=== PATIENT | female | born 1945 | race African-American/Black ===

== ENCOUNTER 2016-08-17 20:42 | Emergency (ER) | payer MEDICARE, MEDICAID ==
[~2016-08-17] VITALS: Ht 165.1 cm; Wt 109.8 kg
[2016-08-17] MEDS ORDERED: Tylenol #3 tab (300mg/30mg) ORAL ONE (21:00)
[2016-08-17] MEDS ORDERED: NORCO 5-325 TA1 EACH ORAL (21:02)
[2016-08-17] MEDS ORDERED: VALACYCLOVIR500 MG ORAL (21:02)
--- NOTE | 2016-08-17 21:03 | Emergency Room Report ---
History of Present Illness General Chief Complaint: General Complaint Source: Patient Present Illness HPI Is a 70-year-old female with multiple medical problem. She presents with a rash on her arm and finger. She thought she may been bitten by something. Onset yesterday. Itching and burning in nature. No nausea no vomiting. No other complaint. Did not see anything bit her. It is 10 out of 10 Allergies: Coded Allergies: PENICILLINS (Verified Allergy, Unknown, 08/17/16) SULFA (SULFONAMIDE ANTIBIOTICS) (Verified Allergy, Unknown, 08/17/16) Patient History Past Medical History: see triage record, old chart reviewed Past Surgical History: other Pertinent Family History: none Social History: Denies: smoking Last Menstrual Period: Menopause Now: No Immunizations: other Reviewed Nursing Documentation: PMH: Agreed, PSxH: Agreed Nursing Documentation-PMH Past Medical History: No History, Except For Hx Hypertension: Yes Review of Systems Eye: Denies: blurred vision, eye pain ENT: Denies: ear pain, nose congestion, throat swelling Respiratory: Denies: cough, shortness of breath Cardiovascular: Denies: chest pain, palpitations Gastrointestinal: Denies: abdominal pain, diarrhea, nausea, vomiting Musculoskeletal: Denies: back pain, joint pain Skin: Denies: rash Neurological: Denies: headache, numbness Endocrine: Denies: increased thirst, increased urine Hematologic/Lymphatic: Denies: easy bruising All Other Systems: negative except mentioned in HPI Physical Exam Vital Signs Date Time Temp Pulse Resp B/P Pulse Ox O2 Delivery O2 Flow Rate FiO2 08/17/16 20:49 98.2 87 16 162/98 99 Room Air vitals with hypertension Sp02 EP Interpretation: reviewed, normal General Appearance: well appearing, no apparent distress, alert Head: normocephalic, atraumatic Eyes: bilateral eye EOMI, bilateral eye PERRL ENT: hearing grossly normal, normal pharynx Neck: full range of motion, supple, no meningismus Respiratory: chest non-tender, lungs clear, normal breath sounds Cardiovascular #1: regular rate, rhythm, no murmur Gastrointestinal: normal bowel sounds, non tender, no mass, no organomegaly, no bruit, non-distended Musculoskeletal: back normal, normal range of motion, other - Patient walks with a walker Neurologic: alert, oriented x3 Psychiatric: mood/affect normal Skin: warm/dry, other - Patient with fascicular lesion along the C7 distribution on right upper extremity. Medical Decision Making Diagnostic Impression: Primary Impression: Herpes zoster Qualified Codes: B02.9 - Zoster without complications ER Course Patient presents with zoster of the C7 distribution. No systemic spread. She' s otherwise stable. We'll discharge home. Last Vital Signs Date Time Temp Pulse Resp B/P Pulse Ox O2 Delivery O2 Flow Rate FiO2 08/17/16 20:49 98.2 87 16 162/98 99 Room Air Status: improved Disposition: HOME, SELF-CARE Condition: Stable Scripts Valacyclovir Hcl* (VALTREX*) 500 Mg Tablet 1000 MG ORAL TWICE A DAY, #28 TAB Prov: FRANCINE VEGA M.D. 08/17/16 Hydrocodone Bit/Acetaminophen 5-325* (NORCO 5-325*) 1 Each Tablet 1 TAB ORAL Q6H Y for For Pain, #20 TAB 0 Refills Prov: FRANCINE VEGA M.D. 08/17/16 Additional Instructions: Followup with your DrJosh in 7 days. Return if symptom worsen. Do not scratch the rash. FRANCINE VEGA M.D. Aug 17, 2016 21:03
[2016-08-17 21:11] VITALS: BP 162/98
[2016-08-17] MEDS ORDERED: Norco 5mg/325mg tab ORAL ONE (21:15)
== END 2016-08-17 21:15 | disposition home or self-care (01) ==
LOC: EMR 20:55
DX: B02.9 Zoster without complications (principal); I10 Essential (primary) hypertension; Z88.0 Allergy status to penicillin; Z88.2 Allergy status to sulfonamides
CPT/HCPCS: 99284